=== PATIENT | female | born 1930 | race Caucasian/White ===

== ENCOUNTER 2016-06-11 09:15 | Inpatient (IN) | payer OTHER ==
[~2016-06-11] VITALS: Ht 167.6 cm; Wt 96.7 kg
[~2016-06-11 09:15] MED LIST: ENAL-3 PO
[2016-06-11] MEDS ORDERED: SODIUM CHLORIDE 0.9% 1,000 ML IV ONE ×2 (10:17→13:44)
[2016-06-11 10:58] LABS: Basophils # (auto) 0 uL; Basophils % (auto) 0.3 % (0.0-2.0); Eosinophils # (auto) 0 uL; Eosinophils % (auto) 0.1 % (0.0-7.0); Hematocrit 39.3 % (36.0-46.0); Hemoglobin 13.1 g/dL (12.2-16.2); Lymphocytes # (auto) 0.6 uL; Lymphocytes % (auto) 4.5 % (10.0-50.0); Mean Corpuscular Hemoglobin 30.7 pg (28.0-32.0); Mean Corpuscular Hgb Conc. 33.5 g/dL (32.0-36.0); Mean Corpuscular Volume 91.7 fL (80.0-100.0); Mean Platelet Volume 6.8 fL (7.4-10.4); Monocytes # (auto) 0.2 uL; Neutrophils # (auto) 11.5 uL; Neutrophils % (auto) 93.1 % (37.0-80.0); Platelet Count (auto) 433 10^3/uL (140-450); Red Cell Distribution Width 14.3 % (11.6-16.0); White Blood Cell 12.3 10^3/uL (4.4-10.8)
[2016-06-11 11:12] LABS: INR 1.14 (0.9-1.15); Partial Thromboplastin Time 28.2 sec (22.64-33.71); Prothrombin Time 11.7 sec (9.37-12.3)
[2016-06-11 11:18] LABS: Anion Gap 13 (5-15); Aspartate Aminotransferase 13 U/L (15-37); Blood Urea Nitrogen 13 mg/dL (7-18); Calcium 8.2 mg/dL (8.5-10.1); Carbon Dioxide 21 mmol/L (21-32); Chloride 105 mmol/L (98-107); GFR African American 125 mL/min; GFR Non-African American 103 mL/min; Glucose 131 mg/dL (74-106); Potassium 3.7 mmol/L (3.5-5.1); Sodium 139 mmol/L (136-145)
[2016-06-11 11:25] LABS: B-Type Natriuretic Peptide 36.55 pg/mL (0-100)
[2016-06-11 11:31] LABS: Alkaline Phosphatase 77 U/L (45-117); Bilirubin, Total 0.5 mg/dL (0.2-1.0); Total Protein 6.5 g/dL (6.4-8.2)
[2016-06-11 12:44] LABS: Temperature: 21.9 C (20.0-25.0)
[2016-06-11] MEDS ORDERED: DEXTROSE (50%) 50ML SYRG IV PRN (13:45)
[2016-06-11] MEDS ORDERED: AZITHROMYCIN 500MG/D5W 250ML 250 ML IV ONE (13:45)
[2016-06-11] MEDS ORDERED: LEVOFLOXACIN 500MG 100 ML IV ONE (13:45)
[2016-06-11] MEDS ORDERED: MORPHINE SULF INJ 2 MG/ML SYRINGE 1ML IV PRN ×2 (14:00)
[2016-06-11] MEDS ORDERED: ONDANSETRON HCL 4 MG/2 ML VIAL IV PRN (14:00)
[2016-06-11] MEDS ORDERED: NITROGLYCERIN 0.4 MG SL TAB SL PRN (14:00)
[2016-06-11] MEDS: SODIUM CHLOR 0.9% PF (SALINE LOCK) 10ML VIAL IV SCH ×2 (14:00→22:24)
[2016-06-11] MEDS ORDERED: ASPirin-EC 81 mg tab PO ONE (14:00)
[2016-06-11] MEDS ORDERED: DOCUSATE SOD 100 MG CAP PO PRN (14:00)
[2016-06-11] MEDS ORDERED: TEMAZEPAM 15 MG CAP PO PRN (14:00)
[2016-06-11] MEDS ORDERED: HYDROcodone-ACET 5/325MG TAB PO PRN (14:00)
[2016-06-11] MEDS ORDERED: ENALAPRIL MALEATE 10 MG TAB PO ONE (14:00)
[2016-06-11] MEDS ORDERED: ACETAMINOPHEN 325 MG TAB PO PRN (14:00)
[2016-06-11] MEDS ORDERED: NOREPINEPHRINE BITARTRATE 250 ML IV ONE (14:10)
[2016-06-11 15:01] LABS: Urine Bilirubin Negative (Negative); Urine Blood TRACE /uL (Negative); Urine Color Yellow (Yellow); Urine Glucose Normal (Normal); Urine Mucus FEW (None Seen); Urine Nitrite Negative (Negative); Urine RBC 42 /hpf (0 - 4); Urine Squamous Epithelial Cell FEW /hpf (<5)
[2016-06-11 15:11] LABS: Urine Ketone 1+ (Negative)
[2016-06-11] MEDS: ENOXAPARIN SOD 40 MG/0.4 ML SYRINGE SC SCH (15:30)
[2016-06-11] MEDS: MULTIPLE VITAMIN TAB PO SCH (15:31)
[2016-06-11] MEDS: FAMOTIDINE 20 MG TAB PO SCH (15:31)
[2016-06-11] MEDS: InsuLIN REG 1unit/0.01ml Soln (100units/ml) SC SCH ×2 (17:00→22:00)
[2016-06-11] MEDS: ACCU-CHEK COMFORT CURVE STRIP VI SCH ×2 (17:00→22:23)
[2016-06-11] MEDS: Boost Glucose Control 8 Ounces PO SCH (18:28)
[2016-06-11 21:38] VITALS: BP 122/62
[2016-06-11] MEDS: ENALAPRIL MALEATE 10 MG TAB PO SCH (22:23)
[2016-06-11] MEDS: ATORVASTATIN 20 MG TAB PO SCH (22:24)
[2016-06-12 04:36] VITALS: BP 142/68
[2016-06-12] MEDS: InsuLIN REG 1unit/0.01ml Soln (100units/ml) SC SCH ×4 (06:11→22:00)
[2016-06-12] MEDS: ACCU-CHEK COMFORT CURVE STRIP VI SCH ×4 (06:11→22:01)
[2016-06-12] MEDS: SODIUM CHLOR 0.9% PF (SALINE LOCK) 10ML VIAL IV SCH ×3 (06:11→22:02)
[2016-06-12 06:22] LABS: Basophils # (auto) 0 uL; Basophils % (auto) 0.4 % (0.0-2.0); Eosinophils # (auto) 0.3 uL; Hemoglobin 10.9 g/dL (12.2-16.2); Lymphocytes # (auto) 1.2 uL; Lymphocytes % (auto) 16.7 % (10.0-50.0); Mean Corpuscular Hemoglobin 30.2 pg (28.0-32.0); Mean Corpuscular Volume 91.7 fL (80.0-100.0); Mean Platelet Volume 6.8 fL (7.4-10.4); Monocytes # (auto) 0.7 uL; Monocytes % (auto) 9.9 % (0.0-12.0); Neutrophils # (auto) 5.1 uL; Platelet Count (auto) 364 10^3/uL (140-450); Red Cell Distribution Width 14.7 % (11.6-16.0); White Blood Cell 7.4 10^3/uL (4.4-10.8)
[2016-06-12 06:45] LABS: Albumin 2.5 g/dL (3.4-5.0); BUN/Creatinine Ratio 30.4; Bilirubin, Total 0.4 mg/dL (0.2-1.0); Calcium 8.2 mg/dL (8.5-10.1); Potassium 3.5 mmol/L (3.5-5.1); Total Protein 5.5 g/dL (6.4-8.2)
[2016-06-12 08:00] VITALS: BP 143/53
[2016-06-12] MEDS: Boost Glucose Control 8 Ounces PO SCH ×3 (08:00→18:00)
[2016-06-12 09:00] VITALS: BP 143/53
[2016-06-12] MEDS ORDERED: LEVOFLOXACIN 750MG 150 ML IV SCH ×2 (10:00)
[2016-06-12] MEDS ORDERED: LEVOFLOXACIN 250MG 50 ML IV SCH (10:00)
[2016-06-12] MEDS ORDERED: AZITHROMYCIN 500MG/D5W 250ML 250 ML IV SCH (10:00)
[2016-06-12] MEDS: ASPirin-EC 81 mg tab PO SCH (10:41)
[2016-06-12] MEDS: MULTIPLE VITAMIN TAB PO SCH (10:41)
[2016-06-12] MEDS: FAMOTIDINE 20 MG TAB PO SCH (10:42)
[2016-06-12] MEDS: ENALAPRIL MALEATE 10 MG TAB PO SCH ×2 (10:43→22:02)
[2016-06-12] MEDS: ENOXAPARIN SOD 40 MG/0.4 ML SYRINGE SC SCH (10:44)
[2016-06-12] MEDS: LEVOFLOXACIN 500MG 100 ML IV SCH (10:45)
[2016-06-12 13:00] VITALS: BP_SYST 122; BP_SYST 136; BP_SYST 142; BP_DIAS 65; BP_DIAS 68; BP_DIAS 83
[2016-06-12 22:00] VITALS: BP 156/68
[2016-06-12] MEDS: ATORVASTATIN 20 MG TAB PO SCH (22:02)
[2016-06-13] VITALS (7 sets, daily range): BP systolic 136–174; BP diastolic 69–81
[2016-06-13] MEDS: ACCU-CHEK COMFORT CURVE STRIP VI SCH ×4 (05:58→22:08)
[2016-06-13] MEDS: SODIUM CHLOR 0.9% PF (SALINE LOCK) 10ML VIAL IV SCH ×3 (05:58→22:08)
[2016-06-13] MEDS: InsuLIN REG 1unit/0.01ml Soln (100units/ml) SC SCH ×4 (05:58→22:00)
[2016-06-13 06:21] LABS: Basophils # (auto) 0 uL; Basophils % (auto) 0.4 % (0.0-2.0); Eosinophils # (auto) 0.2 uL; Eosinophils % (auto) 3.7 % (0.0-7.0); Hematocrit 34.5 % (36.0-46.0); Hemoglobin 11.6 g/dL (12.2-16.2); Lymphocytes # (auto) 1.6 uL; Lymphocytes % (auto) 27.5 % (10.0-50.0); Mean Corpuscular Hemoglobin 30.2 pg (28.0-32.0); Mean Corpuscular Hgb Conc. 33.5 g/dL (32.0-36.0); Mean Platelet Volume 6.9 fL (7.4-10.4); Monocytes # (auto) 0.5 uL; Neutrophils # (auto) 3.5 uL; Neutrophils % (auto) 60.4 % (37.0-80.0); Platelet Count (auto) 429 10^3/uL (140-450); Red Cell Distribution Width 14.9 % (11.6-16.0); White Blood Cell 5.9 10^3/uL (4.4-10.8)
[2016-06-13 06:47] LABS: BUN/Creatinine Ratio 26.7; Calcium 8.3 mg/dL (8.5-10.1); Potassium 3.7 mmol/L (3.5-5.1)
[2016-06-13] MEDS: Boost Glucose Control 8 Ounces PO SCH ×3 (08:00→18:00)
[2016-06-13] MEDS: ASPirin-EC 81 mg tab PO SCH (10:41)
[2016-06-13] MEDS: MULTIPLE VITAMIN TAB PO SCH (10:41)
[2016-06-13] MEDS: ENALAPRIL MALEATE 10 MG TAB PO SCH ×2 (10:42→22:08)
[2016-06-13] MEDS: ENOXAPARIN SOD 40 MG/0.4 ML SYRINGE SC SCH (10:42)
[2016-06-13] MEDS: FAMOTIDINE 20 MG TAB PO SCH (11:29)
[2016-06-13] MEDS: ATORVASTATIN 20 MG TAB PO SCH (22:08)
[2016-06-14 04:38] VITALS: BP 152/84
[2016-06-14] MEDS: ACCU-CHEK COMFORT CURVE STRIP VI SCH ×4 (05:17→22:09)
[2016-06-14] MEDS: SODIUM CHLOR 0.9% PF (SALINE LOCK) 10ML VIAL IV SCH ×3 (05:17→22:09)
[2016-06-14] MEDS: InsuLIN REG 1unit/0.01ml Soln (100units/ml) SC SCH ×4 (05:18→22:00)
[2016-06-14 06:02] LABS: Basophils # (auto) 0.1 uL; Basophils % (auto) 0.9 % (0.0-2.0); Eosinophils # (auto) 0.2 uL; Eosinophils % (auto) 3.2 % (0.0-7.0); Hematocrit 33.7 % (36.0-46.0); Hemoglobin 11.1 g/dL (12.2-16.2); Lymphocytes # (auto) 1.4 uL; Lymphocytes % (auto) 25.6 % (10.0-50.0); Mean Corpuscular Hemoglobin 30.3 pg (28.0-32.0); Mean Corpuscular Volume 91.8 fL (80.0-100.0); Mean Platelet Volume 6.2 fL (7.4-10.4); Monocytes # (auto) 0.5 uL; Monocytes % (auto) 8.2 % (0.0-12.0); Neutrophils # (auto) 3.5 uL; Neutrophils % (auto) 62.1 % (37.0-80.0); Platelet Count (auto) 458 10^3/uL (140-450); Red Cell Distribution Width 14.3 % (11.6-16.0); White Blood Cell 5.6 10^3/uL (4.4-10.8)
[2016-06-14 06:22] LABS: BUN/Creatinine Ratio 33.3; Potassium 3.8 mmol/L (3.5-5.1)
[2016-06-14 09:00] VITALS: BP 150/72
[2016-06-14] MEDS: LEVOFLOXACIN 500MG 100 ML IV SCH (10:29)
[2016-06-14] MEDS: Boost Glucose Control 8 Ounces PO SCH ×3 (10:29→19:00)
[2016-06-14] MEDS: ASPirin-EC 81 mg tab PO SCH (10:29)
[2016-06-14] MEDS: FAMOTIDINE 20 MG TAB PO SCH (10:30)
[2016-06-14] MEDS: ENALAPRIL MALEATE 10 MG TAB PO SCH ×2 (10:30→22:09)
[2016-06-14] MEDS: MULTIPLE VITAMIN TAB PO SCH (10:30)
[2016-06-14] MEDS: ENOXAPARIN SOD 40 MG/0.4 ML SYRINGE SC SCH (10:31)
[2016-06-14] MEDS ORDERED: GOLYTELY 4L KIT PO ONE (11:00)
[2016-06-14 11:30] LABS: Basophils # (auto) 0 uL; Basophils % (auto) 0.4 % (0.0-2.0); Eosinophils # (auto) 0.1 uL; Eosinophils % (auto) 1.9 % (0.0-7.0); Hematocrit 34.5 % (36.0-46.0); Hemoglobin 11.3 g/dL (12.2-16.2); Lymphocytes # (auto) 1.3 uL; Lymphocytes % (auto) 20.7 % (10.0-50.0); Mean Corpuscular Hemoglobin 30.1 pg (28.0-32.0); Mean Corpuscular Hgb Conc. 32.8 g/dL (32.0-36.0); Mean Corpuscular Volume 91.8 fL (80.0-100.0); Mean Platelet Volume 6.5 fL (7.4-10.4); Monocytes # (auto) 0.5 uL; Monocytes % (auto) 7.2 % (0.0-12.0); Neutrophils # (auto) 4.6 uL; Neutrophils % (auto) 69.8 % (37.0-80.0); Platelet Count (auto) 489 10^3/uL (140-450); Red Cell Distribution Width 14.7 % (11.6-16.0); White Blood Cell 6.5 10^3/uL (4.4-10.8)
[2016-06-14 11:53] LABS: INR 1.04 (0.9-1.15); Prothrombin Time 10.7 sec (9.37-12.3)
[2016-06-14 13:00] VITALS: BP 178/82
[2016-06-14 17:51] VITALS: BP 179/84
[2016-06-14 22:00] VITALS: BP 164/87
[2016-06-14] MEDS: ATORVASTATIN 20 MG TAB PO SCH (22:09)
[2016-06-15 02:07] VITALS: BP 158/79
[2016-06-15] MEDS: SODIUM CHLOR 0.9% PF (SALINE LOCK) 10ML VIAL IV SCH ×3 (06:00→22:06)
[2016-06-15] MEDS: ACCU-CHEK COMFORT CURVE STRIP VI SCH ×4 (06:52→22:06)
[2016-06-15] MEDS: InsuLIN REG 1unit/0.01ml Soln (100units/ml) SC SCH ×4 (06:52→22:00)
[2016-06-15 07:53] LABS: Basophils # (auto) 0 uL; Basophils % (auto) 0.2 % (0.0-2.0); Eosinophils # (auto) 0 uL; Eosinophils % (auto) 0.5 % (0.0-7.0); Hematocrit 31.3 % (36.0-46.0); Hemoglobin 10.4 g/dL (12.2-16.2); Lymphocytes # (auto) 0.7 uL; Lymphocytes % (auto) 8.8 % (10.0-50.0); Mean Corpuscular Hemoglobin 30.4 pg (28.0-32.0); Mean Corpuscular Hgb Conc. 33.1 g/dL (32.0-36.0); Mean Corpuscular Volume 91.7 fL (80.0-100.0); Mean Platelet Volume 6.4 fL (7.4-10.4); Monocytes # (auto) 0.5 uL; Monocytes % (auto) 5.3 % (0.0-12.0); Neutrophils # (auto) 7.2 uL; Neutrophils % (auto) 85.2 % (37.0-80.0); Platelet Count (auto) 443 10^3/uL (140-450); Red Cell Distribution Width 14.4 % (11.6-16.0); White Blood Cell 8.4 10^3/uL (4.4-10.8)
[2016-06-15 08:00] VITALS: BP 126/76
[2016-06-15] MEDS ORDERED: SODIUM CHLORIDE LOCK 10 ML ONE (08:07)
[2016-06-15] MEDS ORDERED: diphenhdrAMINE HCL 50 MG/1 ML VL ONE (08:08)
[2016-06-15] MEDS ORDERED: MIDAZOLAM HCL 5 MG/ML-1ML VIAL ONE (08:08)
[2016-06-15] MEDS ORDERED: fentaNYL CITRATE 100 MCG/2 ML VL ONE (08:08)
[2016-06-15] MEDS ORDERED: FLUMAZENIL 0.1 MG/ML INJ 10ML MDV IV ONE (08:09)
[2016-06-15] MEDS ORDERED: NALOXONE HCL 0.4 MG/ML VIAL ONE (08:09)
[2016-06-15 08:17] LABS: Calcium 7.7 mg/dL (8.5-10.1); Potassium 3.4 mmol/L (3.5-5.1)
[2016-06-15 08:30] VITALS: BP 126/76
[2016-06-15] MEDS: MULTIPLE VITAMIN TAB PO SCH (09:45)
[2016-06-15] MEDS: Boost Glucose Control 8 Ounces PO SCH ×3 (09:45→18:19)
[2016-06-15] MEDS: FAMOTIDINE 20 MG TAB PO SCH (09:45)
[2016-06-15] MEDS: ENALAPRIL MALEATE 10 MG TAB PO SCH ×2 (09:46→22:06)
[2016-06-15 12:30] VITALS: BP 134/73
[2016-06-15 16:56] VITALS: BP 150/68
[2016-06-15 22:00] VITALS: BP 139/74
[2016-06-15] MEDS: ATORVASTATIN 20 MG TAB PO SCH (22:06)
[2016-06-16 04:41] VITALS: BP 152/82
[2016-06-16] MEDS: SODIUM CHLOR 0.9% PF (SALINE LOCK) 10ML VIAL IV SCH ×3 (05:47→21:56)
[2016-06-16] MEDS: ACCU-CHEK COMFORT CURVE STRIP VI SCH ×4 (05:47→21:57)
[2016-06-16] MEDS: InsuLIN REG 1unit/0.01ml Soln (100units/ml) SC SCH ×4 (05:47→22:00)
[2016-06-16] MEDS ORDERED: SODIUM CHLORIDE LOCK 10 ML ONE (07:32)
[2016-06-16] MEDS ORDERED: diphenhdrAMINE HCL 50 MG/1 ML VL ONE (07:33)
[2016-06-16] MEDS: Boost Glucose Control 8 Ounces PO SCH ×3 (08:00→17:58)
[2016-06-16] MEDS: MIDAZOLAM HCL 5 MG/ML-1ML VIAL ONE ×3 (08:10→08:21)
[2016-06-16] MEDS: fentaNYL CITRATE 100 MCG/2 ML VL ONE ×3 (08:10→08:21)
[2016-06-16 08:18] VITALS: BP 165/76
[2016-06-16] MEDS: MULTIPLE VITAMIN TAB PO SCH (09:27)
[2016-06-16] MEDS: ENALAPRIL MALEATE 10 MG TAB PO SCH ×2 (09:27→21:57)
[2016-06-16] MEDS: FAMOTIDINE 20 MG TAB PO SCH (09:27)
[2016-06-16 12:30] VITALS: BP 136/82
[2016-06-16] MEDS ORDERED: POTASSIUM CHL 20 Meq TABLET PO ONE (16:15)
[2016-06-16 16:44] VITALS: BP 152/67
[2016-06-16] MEDS: ATORVASTATIN 20 MG TAB PO SCH (21:56)
[2016-06-16 22:00] VITALS: BP 150/72
[2016-06-17 05:00] VITALS: BP 162/86
[2016-06-17] MEDS: SODIUM CHLOR 0.9% PF (SALINE LOCK) 10ML VIAL IV SCH ×3 (05:36→21:29)
[2016-06-17] MEDS: InsuLIN REG 1unit/0.01ml Soln (100units/ml) SC SCH ×4 (06:48→21:29)
[2016-06-17] MEDS: ACCU-CHEK COMFORT CURVE STRIP VI SCH ×4 (06:48→21:29)
[2016-06-17] MEDS: Boost Glucose Control 8 Ounces PO SCH ×3 (08:35→18:38)
[2016-06-17 09:00] VITALS: BP 161/65
[2016-06-17] MEDS: MULTIPLE VITAMIN TAB PO SCH (09:39)
[2016-06-17] MEDS: ENALAPRIL MALEATE 10 MG TAB PO SCH ×2 (09:39→21:29)
[2016-06-17] MEDS: FAMOTIDINE 20 MG TAB PO SCH (09:39)
[2016-06-17 13:12] VITALS: BP 167/71
[2016-06-17 16:52] VITALS: BP 142/64
[2016-06-17 21:18] LABS: Temperature: 22.5 C (20.0-25.0)
[2016-06-17] MEDS: ATORVASTATIN 20 MG TAB PO SCH (21:29)
[2016-06-17 21:30] VITALS: BP 175/85
[2016-06-18] MEDS ORDERED: cloNIDine HCL 0.1 MG TAB PO PRN (00:45)
[2016-06-18 02:27] LABS: Hematocrit 33.5 % (36.0-46.0); Hemoglobin 10.9 g/dL (12.2-16.2)
[2016-06-18] MEDS ORDERED: PANTOPRAZOLE SODIUM 40 MG/10 ML VIAL IV ONE (02:45)
[2016-06-18 05:00] VITALS: BP 150/77
[2016-06-18] MEDS: InsuLIN REG 1unit/0.01ml Soln (100units/ml) SC SCH ×4 (06:21→22:00)
[2016-06-18] MEDS: SODIUM CHLOR 0.9% PF (SALINE LOCK) 10ML VIAL IV SCH ×3 (06:21→22:15)
[2016-06-18] MEDS: ACCU-CHEK COMFORT CURVE STRIP VI SCH ×4 (06:21→22:14)
[2016-06-18 09:08] VITALS: BP 147/77
[2016-06-18] MEDS: MULTIPLE VITAMIN TAB PO SCH (09:54)
[2016-06-18] MEDS: PANTOPRAZOLE SODIUM 40 MG/10 ML VIAL IV SCH ×2 (09:54→22:15)
[2016-06-18] MEDS: FAMOTIDINE 20 MG TAB PO SCH (09:54)
[2016-06-18] MEDS: Boost Glucose Control 8 Ounces PO SCH ×3 (09:54→18:00)
[2016-06-18] MEDS: ENALAPRIL MALEATE 10 MG TAB PO SCH ×2 (09:55→22:00)
[2016-06-18] MEDS ORDERED: SODIUM CHLORIDE 0.9% 1,000 ML IV SCH (10:30)
[2016-06-18 11:02] LABS: Hematocrit 35.3 % (36.0-46.0); Hemoglobin 11.7 g/dL (12.2-16.2)
[2016-06-18 11:03] LABS: BUN/Creatinine Ratio 21.4; Calcium 8.4 mg/dL (8.5-10.1); Potassium 3.9 mmol/L (3.5-5.1)
[2016-06-18 13:16] VITALS: BP 136/67
[2016-06-18 17:00] VITALS: BP 121/54
[2016-06-18 21:30] VITALS: BP 109/55
[2016-06-18] MEDS: ATORVASTATIN 20 MG TAB PO SCH (22:15)
[2016-06-19 05:00] VITALS: BP 144/74
[2016-06-19] MEDS: SODIUM CHLOR 0.9% PF (SALINE LOCK) 10ML VIAL IV SCH (05:26)
[2016-06-19] MEDS: InsuLIN REG 1unit/0.01ml Soln (100units/ml) SC SCH (06:04)
[2016-06-19] MEDS: ACCU-CHEK COMFORT CURVE STRIP VI SCH ×2 (06:04→11:22)
[2016-06-19] MEDS: Boost Glucose Control 8 Ounces PO SCH (07:51)
[2016-06-19 09:00] VITALS: BP 143/61
[2016-06-19] MEDS ORDERED: FAMOTIDINE (10MG/ML) 2ML VL IV SCH (10:00)
[2016-06-19] MEDS ORDERED: SODIUM CHLORIDE 0.9% 1,000 ML IV SCH (10:30)
[2016-06-19] MEDS: MULTIPLE VITAMIN TAB PO SCH (10:30)
[2016-06-19] MEDS: ENALAPRIL MALEATE 10 MG TAB PO SCH (10:31)
[2016-06-19 11:39] VITALS: BP 134/58
[2016-06-19 11:58] VITALS: BP 134/58
[2016-06-20] MEDS ORDERED: FAMOTIDINE (10MG/ML) 2ML VL IV SCH (10:00)
== END 2016-06-19 12:38 | disposition hospice, home (50) | DRG 391 ==
LOC: EDBD 09:15 → ER 09:20 → TELE 09:21 → TELE-E-ADS 15:01 → TELE-CENTR 17:14 → CENTRAL 06-17 02:31
PROVIDERS: ADMIT Internal Medicine; ATTEND Internal Medicine Pulmonary Disease
PROC: 0DJD8ZZ Inspection of Lower Intestinal Tract, Via Natural or Artificial Opening Endoscopic (ICD-10-PCS; principal; 2016-06-16 08:05)
DX: K57.90 Diverticulosis of intestine, part unspecified, without perforation or abscess without bleeding (principal); J18.1 Lobar pneumonia, unspecified organism; E44.0 Moderate protein-calorie malnutrition; Z68.1 Body mass index [BMI] 19.9 or less, adult; K92.0 Hematemesis; I67.9 Cerebrovascular disease, unspecified; F03.90 Unspecified dementia, unspecified severity, without behavioral disturbance, psychotic disturbance, mood disturbance, and anxiety; I10 Essential (primary) hypertension; Z80.0 Family history of malignant neoplasm of digestive organs; R62.7 Adult failure to thrive; W06.XXXA Fall from bed, initial encounter; Z88.0 Allergy status to penicillin; M41.86 Other forms of scoliosis, lumbar region; I77.89 Other specified disorders of arteries and arterioles; D64.9 Anemia, unspecified; M41.9 Scoliosis, unspecified
CPT/HCPCS: 36415; 70450; 71010; 71250; 80048; 80053; 81001; 82270; 82607; 82746; 82962; 83036; 83605; 83880; 84439; 84443; 84484; 85014; 85018; 85025; 85610; 85730; 87040; 87086; 92610; 93005; 93306; 93886; 96365; 96372; 97001; 97110; 97116; 97530; C9113; J1956; J2250; J2405; J3490